=== PATIENT | female | born 1955 | race Caucasian/White ===

== ENCOUNTER 2018-08-12 06:20 | Day surgery (SDC) | payer BC ==
[2018-08-12] MEDS ORDERED: Lactated Ringers 1,000 ML IV SCH (07:00)
[2018-08-12] MEDS ORDERED: fentaNYL 100 MCG/2 ML SDV ONE (07:55)
[2018-08-12] MEDS ORDERED: Propofol 200 MG/20 ML SDV ONE (07:55)
[2018-08-12] MEDS ORDERED: Midazolam 1 MG/ML 2 ML SDV ONE (07:55)
--- NOTE | 2018-08-12 09:17 | OR ---
DATE OF SURGERY: 08/12/2018. REFERRING PROVIDER: Janiya Sierra DO. PRE-OPERATIVE DIAGNOSES: History of colon polyps. Last colonoscopy was in 2013. POST-OPERATIVE DIAGNOSES: 1. Incomplete colonoscopy secondary to kinked sigmoid colon. I was only able to advance the scope to 30 cm. Multiple maneuvers to try and get by this area were attempted but unsuccessful. 2. Mild sigmoid diverticulosis to the viewed area. PROCEDURE: Incomplete colonoscopy. SURGEON: Sajan Kiran M.D. ANESTHESIA: Monitored anesthesia care. BOWEL PREP: Good. Tomas is a 62-year-old female, was brought to the endoscopy suite after discussing risks and benefits of the procedure. Informed consent was obtained for conscious sedation and colonoscopy with or without biopsy and/or polypectomy. We also discussed possibility of missed lesions. Pre-procedure exam was unremarkable. IV, oxygen, and monitors were placed. The patient was placed in the left lateral decubitus position. Sedation was administered and a digital rectal exam was performed which was unremarkable except for some external hemorrhoids, not acutely inflamed. Colonoscope was passed into the rectum and slowly advanced but only able to advance to about 30 cm. The patient kinked sigmoid colon, which I was unable to pass despite multiple maneuvers, including the patient repositioning on her back and right side as well as some abdominal pressure and scope stiffening. The sigmoid colon did reveal some mild diverticulosis in the viewed area. On the way out, retroflexion was performed. Rectal mucosa was unremarkable. Scope was removed. The patient tolerated the procedure well. The patient was monitored until that baseline status. Discharge instructions were reviewed and the patient was discharged in good condition. COMPLICATIONS: None. TOTAL TIME: 22 minutes. ESTIMATED BLOOD LOSS: Less than 1 mL due to some scope skin sarmiento. RECOMMENDATIONS/FOLLOW-UP: Given the inability to pass the scope past 30 cm, options for colon cancer screening would include barium enema or having the patient see GI in [place] to see if they are able to navigate the tortuous sigmoid colon. Short of that, could consider Cologuard to see if the next step is necessary. I would like to kindly thank Janiya Sierra DO, for this referral. DMB: 08/12/2018 08:48:55 MODL: 08/12/2018 09:07:50 /[id number]
== END 2018-08-12 11:20 | disposition home or self-care (01) ==
LOC: VM.SDS 06:20
PROVIDERS: ATTEND Family Medicine
DX: Z12.11 Encounter for screening for malignant neoplasm of colon (principal); K57.30 Diverticulosis of large intestine without perforation or abscess without bleeding; Z86.010 Personal history of colon polyps; E78.5 Hyperlipidemia, unspecified; M17.0 Bilateral primary osteoarthritis of knee; K21.9 Gastro-esophageal reflux disease without esophagitis; M25.542 Pain in joints of left hand; M25.541 Pain in joints of right hand; R92.2 Inconclusive mammogram; N95.9 Unspecified menopausal and perimenopausal disorder; Z91.040 Latex allergy status; Z79.899 Other long term (current) drug therapy; Z98.890 Other specified postprocedural states
CPT/HCPCS: J2250; J2704; J3010; J7120

== ENCOUNTER 2020-06-30 17:33 | Emergency (ER) | payer OTHER, MEDICARE, BC ==
[2020-06-30] MEDS: HYDROmorphone 1 MG/ML Syringe IVPUSH ONE (17:52)
[2020-06-30] MEDS: Sodium Chloride 0.9% 10 ML Syringe FLUSH PRN (17:53)
[2020-06-30] MEDS: Ondansetron 4 MG/2 ML SDV IVPUSH ONE (18:03)
--- NOTE | 2020-06-30 18:12 | EDM.PDOC ---
ED HPI GENERAL MEDICAL PROBLEM - General Chief Complaint: Upper Extremity Injury/Pain Stated Complaint: POSSIBLE BROKEN R ARM/SHOULDER Time Seen by Provider: 06/30/20 17:40 Source of Information: Reports: Patient History Limitations: Reports: No Limitations - History of Present Illness INITIAL COMMENTS - FREE TEXT/NARRATIVE: Pt. presents to ER with complaints of pain to her R shoulder/upper arm. Pt. states that she "tripped over" her Grandchild earlier in the evening. Pt. denies striking her head. Denies any neck or back pain. Pt. only complaint is that of pain and decreased ROM to R shoulder. Pt. complains of some tingling to the fingers of the affected hand. Pt. states that she last ate a meal at noon. She states that she had consumed a small amount of water and popcorn just prior to the fall. Denies complications with anesthesia in the past. Onset: Today Onset Date: 06/30/20 Location: Reports: Upper Extremity, Right Improves with: Reports: Rest Worsens with: Reports: Movement Context: Reports: Trauma Right Shoulder Pain Score (Numeric/FACES): 10 - Related Data Allergies Allergy/AdvReac Type Severity Reaction Status Date / Time latex Allergy Itching Verified 06/30/20 17:49 Home Meds: Home Meds Calcium Carb & Citrate/Vit D3 [Calcium + Vitamin D3 Caplet] 1 each PO DAILY 08/10/13 [History] Omeprazole 20 mg PO DAILY 08/10/13 [History] Ibuprofen 200 mg PO Q4H PRN 08/10/18 [History] Past Medical History HEENT History: Reports: Impaired Vision Cardiovascular History: Reports: High Cholesterol Gastrointestinal History: Reports: Colon Polyp, GERD, Helicobacter Pylori 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 Dense breasts Musculoskeletal History: Reports: Arthritis, Other (See Below) Other Musculoskeletal History: DJD of knee. PIP and DIP arthritic changes bilat hands. Left hip and knee pain Neurological History: Reports: Vertigo - Past Surgical History GI Surgical History: Reports: Colonoscopy Musculoskeletal Surgical History: Reports: Knee Replacement, Other (See Below) Other Musculoskeletal Surgeries/Procedures:: Bunion surgery left foot Review of Systems - Review of Systems Review Of Systems: Comprehensive ROS is negative, except as noted in HPI. ED EXAM, GENERAL - Physical Exam Exam: See Below Exam Limited By: No Limitations General Appearance: Alert, WD/WN, Severe Distress Respiratory/Chest: No Respiratory Distress, Lungs Clear, Normal Breath Sounds, No Accessory Muscle Use, Chest Non-Tender Cardiovascular: Normal Peripheral Pulses, Regular Rate, Rhythm, No Edema, No Gallop, No JVD, No Murmur Extremities: Normal Capillary Refill, Limited Range of Motion, Other (obvious deformity noted to R shoulder. ) Neurological: Alert, Oriented, CN II-XII Intact, Normal Cognition, Normal Gait, Normal Reflexes, No Motor/Sensory Deficits ED TRAUMA EXTREMITY PROCEDURES - Joint Reduction Right Shoulder Sedation: Conscious Sedation Technique: Traction/Counter Traction (Consent was obtained. Pt. was given a total of 75mcg of fentanyl and 3 mg of versed. Pt. was deeply sedated. Attempted external rotation and traction/counter traction numerous times unsuccessfully.), Other (Kathy method with 30# of counterweight applied for approx. 35 min. ) Number of Attempts: Other: Course - Vital Signs Last Recorded V/S: Last Vital Signs Temp 36.5 C 06/30/20 17:20 Pulse 69 06/30/20 17:20 Resp 16 06/30/20 17:20 BP 116/61 06/30/20 17:20 Pulse Ox 100 06/30/20 17:20 - Orders/Labs/Meds Orders: Active Orders 24 hr Category Date Time Status Humerus Rt [CR] Stat Exams 06/30/20 17:49 Taken Shoulder 1V Rt [CR] Stat Exams 06/30/20 19:45 Taken Shoulder Comp Rt [CR] Stat Exams 06/30/20 17:49 Taken Sodium Chloride 0.9% [Normal Saline] 1,000 ml Med 06/30/20 19:25 Active IV ONETIME Sodium Chloride 0.9% [Saline Flush] Med 06/30/20 17:48 Active 10 ml FLUSH ASDIRECTED PRN Peripheral IV Insertion Adult [OM.PC] Routine Oth 06/30/20 17:48 Ordered Medication Orders Sodium Chloride (Normal Saline) 1,000 mls @ 999 mls/hr IV ONETIME ONE Stop: 06/30/20 20:25 Last Admin: 06/30/20 19:25 Dose: 999 mls/hr Documented by: MONICA Sodium Chloride (Sodium Chloride 0.9% 10 Ml Syringe) 10 ml FLUSH ASDIRECTED PRN PRN Reason: Keep Vein Open Last Admin: 06/30/20 17:53 Dose: 10 ml Documented by: JOSÉ MIGUEL Meds: Medications Generic Name Dose Route Start Last Admin Trade Name Freomari PRN Reason Stop Dose Admin Sodium Chloride 1,000 mls @ 999 mls/hr 06/30/20 19:25 06/30/20 19:25 Normal Saline IV 06/30/20 20:25 999 mls/hr ONETIME ONE Administration Sodium Chloride 10 ml 06/30/20 17:48 06/30/20 17:53 Sodium Chloride 0.9% 10 Ml Syringe FLUSH 10 ml ASDIRECTED PRN Administration Keep Vein Open Discontinued Medications Generic Name Dose Route Start Last Admin Trade Name An PRN Reason Stop Dose Admin Fentanyl 50 mcg 06/30/20 18:38 06/30/20 19:00 Fentanyl 50 Mcg/Ml Sdv IVPUSH 06/30/20 18:39 25 mcg ONETIME ONE Administration Fentanyl 50 mcg 06/30/20 19:28 06/30/20 19:32 Fentanyl 50 Mcg/Ml Sdv IVPUSH 06/30/20 19:29 50 mcg ONETIME ONE Administration Fentanyl Confirm 06/30/20 19:40 06/30/20 19:51 Fentanyl 50 Mcg/Ml Sdv Administered 06/30/20 19:41 Not Given Dose 50 mcg .ROUTE .STK-MED ONE Hydromorphone HCl 1 mg 06/30/20 17:48 06/30/20 17:52 Hydromorphone 1 Mg/Ml Syringe IVPUSH 06/30/20 17:49 1 mg ONETIME ONE Administration Lorazepam 1 mg 06/30/20 18:37 06/30/20 18:51 Lorazepam 2 Mg/Ml Sdv IVPUSH 06/30/20 18:38 1 mg STAT ONE Administration Midazolam HCl 2 mg 06/30/20 19:27 06/30/20 19:33 Midazolam 1 Mg/Ml 2 Ml Sdv IVPUSH 06/30/20 19:28 2 mg ONETIME ONE Administration Midazolam HCl Confirm 06/30/20 19:48 06/30/20 19:53 Midazolam 1 Mg/Ml 2 Ml Sdv Administered 06/30/20 19:49 Not Given Dose 2 mg .ROUTE .STK-MED ONE Midazolam HCl 1 mg 06/30/20 19:46 06/30/20 19:37 Midazolam 1 Mg/Ml 2 Ml Sdv IVPUSH 06/30/20 19:47 1 mg ONETIME ONE Administration Ondansetron HCl 4 mg 06/30/20 18:00 06/30/20 18:03 Ondansetron 4 Mg/2 Ml Sdv IVPUSH 06/30/20 18:01 4 mg ONETIME ONE Administration - Radiology Interpretation Free Text/Narrative:: Dislocation noted on x-ray. No obvious fracture noted to humerus. Departure - Departure Time of Disposition: 20:33 Disposition: DC/Tfer to [facility] 02 Clinical Impression: Dislocation, shoulder, anterior - Discharge Information Instructions: Shoulder Dislocation Referrals: Janiya Sierra DO [Primary Care Provider] - Forms: ED Department Discharge, Interfacility Transfer EMTALA Sepsis Event Note (ED) - Focused Exam Vital Signs: Vital Signs Temp Pulse Resp BP Pulse Ox 06/30/20 17:20 36.5 C 69 16 116/61 100 - Problem List Review Problem List Initiated/Reviewed/Updated: Yes - My Orders Last 24 Hours: My Active Orders 06/30/20 17:48 Sodium Chloride 0.9% [Saline Flush] 10 ml FLUSH ASDIRECTED PRN Peripheral IV Insertion Adult [OM.PC] Routine 06/30/20 17:49 Humerus Rt [CR] Stat Shoulder Comp Rt [CR] Stat 06/30/20 19:25 Sodium Chloride 0.9% [Normal Saline] 1,000 ml IV ONETIME 06/30/20 19:45 Shoulder 1V Rt [CR] Stat - Assessment/Plan Last 24 Hours: My Active Orders 06/30/20 17:48 Sodium Chloride 0.9% [Saline Flush] 10 ml FLUSH ASDIRECTED PRN Peripheral IV Insertion Adult [OM.PC] Routine 06/30/20 17:49 Humerus Rt [CR] Stat Shoulder Comp Rt [CR] Stat 06/30/20 19:25 Sodium Chloride 0.9% [Normal Saline] 1,000 ml IV ONETIME 06/30/20 19:45 Shoulder 1V Rt [CR] Stat Plan: Pt. will be transferred to [facility] for reduction. Pt. will be Transported via [facility] ground ambulance. Dr. Ocampo is accepting.
[2020-06-30] MEDS: LORazepam 2 MG/ML SDV IVPUSH ONE (18:51)
[2020-06-30] MEDS: fentaNYL 50 MCG/ML SDV IVPUSH ONE ×2 (19:00→19:32)
[2020-06-30] MEDS: Sodium Chloride 0.9% 1,000 ML IV ONE (19:25)
[2020-06-30] MEDS: Midazolam 1 MG/ML 2 ML SDV IVPUSH ONE ×2 (19:33→19:37)
[2020-06-30] MEDS: fentaNYL 50 MCG/ML SDV ONE (19:51)
[2020-06-30] MEDS: Midazolam 1 MG/ML 2 ML SDV ONE (19:53)
--- NOTE | 2020-07-02 14:47 | CR ---
[id number] RAD/RAD Shoulder Right 2V Min EXAM: RAD Shoulder Right 2V Min CLINICAL DATA: TRAUMA COMPARISON: No previous similar exam is available. FINDINGS: An anterior inferior dislocation is seen. IMPRESSION: DISLOCATED SHOULDER Last Peters MD 07/02/20 [phone] Thank you for allowing us to participate in the care of your patient.
--- NOTE | 2020-07-02 14:47 | CR ---
[id number] RAD/RAD Humerus Right 2V EXAM: RAD Humerus Right 2V CLINICAL DATA: TRAUMA COMPARISON: No previous similar exam is available. FINDINGS: Anterior inferior dislocation is seen There may be a Hill-Sachs deformity. IMPRESSION: DISLOCATED SHOULDER Last Peters MD 07/02/20 [phone] Thank you for allowing us to participate in the care of your patient.
--- NOTE | 2020-07-02 14:48 | CR ---
[id number] RAD/RAD Shoulder Right 2V Min EXAM: RAD Shoulder Right 2V Min CLINICAL DATA: DISLOCATED SHOULDER COMPARISON: CORRELATION IS MADE WITH THE OTHER IMAGING STUDIES TODAY FINDINGS: An anterior inferior dislocation is seen on the image labeled postreduction. IMPRESSION: PERSISTENT DISLOCATION Last Peters MD 07/02/20 [phone] Thank you for allowing us to participate in the care of your patient.
== END 2020-06-30 20:41 | disposition short-term general hospital (02) ==
LOC: VM.ED 17:33
DX: S43.014A Anterior dislocation of right humerus, initial encounter (principal); S43.034A Inferior dislocation of right humerus, initial encounter; K21.9 Gastro-esophageal reflux disease without esophagitis; Z91.040 Latex allergy status; Z79.899 Other long term (current) drug therapy; W01.0XXA Fall on same level from slipping, tripping and stumbling without subsequent striking against object, initial encounter
CPT/HCPCS: 23650; 73020-RT; 73030-RT; 73060-RT; 94760; 96374; 96375; 99152; 99284; 99284-25; J1170; J2060; J2250; J2405; J3010; J7030